=== PATIENT | male | born 1970 | race African-American/Black ===

== ENCOUNTER 2018-10-20 15:52 | Emergency (ER) | payer OTHER ==
[~2018-10-20] VITALS: Ht 182.9 cm; Wt 77.1 kg
[2018-10-20 15:56] VITALS: BP 130/58
[2018-10-20] MEDS ORDERED: ANTI-ITCH28 G1 TP (16:02)
--- NOTE | 2018-10-20 16:05 | NUR ---
ED Nurse Note: Pt came in due to lower back pain for weeks. Denies injury. Pt also c/o rashes on both arms and was prescribed by his PCP with cortisone cream but states it was not effective for him. AAO x4, ambulatory. Rahes on upper extremities
--- NOTE | 2018-10-20 16:50 | NUR ---
ED Nurse Note: ERPA at bedside assessing the pt.
[2018-10-20] MEDS ORDERED: Ketorolac 60mg Inj IM ONE (17:15)
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
[2018-10-20] MEDS ORDERED: IBU800 MG PO (17:25)
[2018-10-20] MEDS ORDERED: KENALOG 0.025%15 GM APPLIC (17:25)
[2018-10-20] MEDS ORDERED: ROBAXIN500 MG PO (17:25)
[2018-10-20 17:28] VITALS: BP 126/34
--- NOTE | 2018-10-20 17:29 | NUR ---
ED Nurse Note: Pt cleared by health care Provider for discharge. DC instructions/prescription was given and explained to pt and verbalized understanding of teachings. All medical deviecs such as ID band removed. Pt is AAO x4, ambulatory and left with all personal belongings.
== END 2018-10-20 17:30 | disposition home or self-care (01) ==
LOC: EMR 16:50
DX: G89.29 Other chronic pain (principal); M54.5 Low back pain; D36.7 Benign neoplasm of other specified sites; L30.9 Dermatitis, unspecified
CPT/HCPCS: 96372; 99283

== ENCOUNTER 2018-11-06 23:30 | Emergency (ER) | payer OTHER ==
[~2018-11-06] VITALS: Ht 182.9 cm; Wt 82.6 kg
[~2018-11-06 23:30] MED LIST: ANTI-ITCH28 G1 TP; IBU800 MG PO; KENALOG 0.025%15 GM APPLIC; ROBAXIN500 MG PO
--- NOTE | 2018-11-07 00:04 | NUR ---
ED Nurse Note: pt walked in c/o chronic back pain, pt reports it has been ongoing issue and was in the ED recently and was prescribed pain medication with robaxin but no improvement. pt denies following up with the pcp, reports his appointment is on . pt AA&ox4, gcs=15, vss, ambulatory w/ steady gait, will cont monitor.
[2018-11-07 00:05] VITALS: BP 106/69
--- NOTE | 2018-11-07 01:11 | Emergency Room Report ---
History of Present Illness General Chief Complaint: Back Pain-No Injury Source: Patient Present Illness HPI Patient is a 48-year-old male presents after recurrence of low back pain. Patient a prior history of chronic back pain intermittently. He reports having worsening pain over the past few days. He reports having worsening pain with flexion. He denies any prior surgeries on his back. He states that he has been urinating normally and had been not having any hematuria. He denies any numbness or weakness to his extremities. He did deny abdominal pain. He states he had prior ER visits in the past for low back pain with similar symptoms. He states this is a chronic problem for for many years.Patient denies any weight loss or fever. Allergies: Coded Allergies: No Known Allergies (Unverified , 10/20/18) Patient History Past Medical History: see triage record Reviewed Nursing Documentation: PMH: Agreed; PSxH: Agreed Nursing Documentation-PM Past Medical History: No History, Except For Review of Systems All Other Systems: negative except mentioned in HPI Physical Exam Vital Signs Date Time Temp Pulse Resp B/P (MAP) Pulse Ox O2 Delivery O2 Flow Rate FiO2 11/06/18 23:42 98.4 76 18 106/69 (81) 98 Room Air General Appearance: well appearing, no apparent distress, alert, GCS 15 Head: normocephalic, atraumatic ENT: hearing grossly normal, normal voice Neck: full range of motion, supple Respiratory: chest non-tender, lungs clear, normal breath sounds, no respiratory distress, speaking full sentences Cardiovascular #1: normal peripheral pulses, no edema Gastrointestinal: normal inspection Musculoskeletal: normal inspection, no calf tenderness Neurologic: alert, oriented x3, responsive, lap machine tender III-XII nml as tested, normal gait Psychiatric: mood/affect normal Skin: no rash Medical Decision Making Diagnostic Impression: Primary Impression: Exacerbation of chronic back pain ER Course Presented for back pain. Differential diagnosis included but was not limited to herniated disc, cauda equina syndrome, abdominal aortic aneurysm, perforated ulcer, spinal epidural abscess, spinal stenosis, lumbar fracture, metastatic lesion, pyelonephritis. Patient has a benign exam and does not appear to require any imaging or laboratory testing at this time.Patient appears to be stable for outpatient follow-up with his primary care physician. Patient was given prescription for muscle relaxants. Patient was advised to return if worse. Last Vital Signs Date Time Temp Pulse Resp B/P (MAP) Pulse Ox O2 Delivery O2 Flow Rate FiO2 11/07/18 00:05 98.4 74 18 106/69 98 Room Air Status: improved Disposition: HOME, SELF-CARE Condition: Stable Scripts Ibuprofen* (MOTRIN*) 600 Mg Tablet 600 MG ORAL Q8H PRN for For Pain, #30 TAB 0 Refills Prov: Maulik Reeder MD 11/07/18 Cyclobenzaprine Hcl* (FLEXERIL*) 10 Mg Tablet 10 MG ORAL TID PRN for Muscle Spasm, #20 TAB Prov: Maulik Reeder MD 11/07/18 Acetaminophen* (ACETAMINOPHEN EXTRA STRENGTH*) 500 Mg Tablet 500 MG ORAL Q8H PRN for Fever/Headache/Mild Pain, #30 TAB Prov: Maulik Reeder MD 11/07/18 Maulik Reeder MD Nov 07, 2018 01:11
[2018-11-07] MEDS ORDERED: Ketorolac 60mg Inj IM ONE (01:15)
[2018-11-07] MEDS ORDERED: Dexamethasone 4mg/ml vial IM ONE (01:15)
[2018-11-07] MEDS ORDERED: IBUPROFEN600 MG ORAL (01:22)
[2018-11-07] MEDS ORDERED: CYCLOBENZAPRINE10 MG ORAL (01:22)
[2018-11-07] MEDS ORDERED: ACETAMINOPHEN500 M3 ORAL (01:22)
[2018-11-07 01:45] VITALS: BP 112/74
--- NOTE | 2018-11-07 01:45 | NUR ---
ER Nurse Note: Pt seen, treated, medically cleared for discharge by ERMD. Discharge instuctions and prescriptions given with repeat verbalization by pt. Emphasized to follow up with primay care provider; take whole course of medication. Explained each medication. All orders completed per ERMD orders. Pt a&ox4, VSS, no signs of distress. ID band removed. All questions answered per pt's questions. Pt left with all belongings, left with own transportation.
== END 2018-11-07 01:45 | disposition home or self-care (01) ==
LOC: EMR 11-07 00:45
DX: M54.5 Low back pain (principal); G89.29 Other chronic pain
CPT/HCPCS: 96372; 99283; J1100

== ENCOUNTER 2019-01-19 11:55 | Emergency (ER) | payer OTHER ==
[~2019-01-19] VITALS: Ht 182.9 cm; Wt 86.2 kg
[~2019-01-19 11:55] MED LIST changes: +ACETAMINOPHEN500 M3 ORAL; +CYCLOBENZAPRINE10 MG ORAL; +IBUPROFEN600 MG ORAL
[2019-01-19 12:06] VITALS: BP 101/68
--- NOTE | 2019-01-19 12:08 | NUR ---
ED Nurse Note: Patient walked in to ER from home due to chronic lower back pain 9 for years. Patient alert and oriented x4 and ambulatory. Calm and cooperative. Skin clean and intact. No cardiac or acute distress noted at this time.
--- NOTE | 2019-01-19 12:29 | Emergency Room Report ---
History of Present Illness General Chief Complaint: Lower Back Pain or Injury Source: Patient Present Illness HPI 48-year-old male presents to the emergency department complaining of 10 out of 10 severity acute onset low back pain that he describes as exacerbation of his chronic back pain progressive x1 week. Patient states he has been dealing with this pain for over 30 years. Patient denies any trauma or fall he denies saddle anesthesia, urinary incontinence or retention. Patient denies midline back pain he denies history of neoplastic disease, night sweats or recent spinal procedures. No other aggravating or relieving factors at this time. He is ambulatory without assistance. He reports walking and sitting in certain positions exacerbate his pain. He is requesting refill of his steroid and antifungal cream for his rash on hands. Allergies: Coded Allergies: No Known Allergies (Unverified , 10/20/18) Patient History Past Medical History: see triage record Past Surgical History: none Pertinent Family History: none Reviewed Nursing Documentation: PMH: Agreed; PSxH: Agreed Nursing Documentation-PMH Past Medical History: No Stated History Review of Systems All Other Systems: negative except mentioned in HPI Physical Exam Vital Signs Date Time Temp Pulse Resp B/P (MAP) Pulse Ox O2 Delivery O2 Flow Rate FiO2 01/19/19 12:00 98.4 89 16 101/68 (79) 100 Room Air Sp02 EP Interpretation: reviewed, normal General Appearance: no apparent distress, alert, GCS 15, non-toxic Head: normocephalic, atraumatic Eyes: bilateral eye normal inspection, bilateral eye PERRL ENT: hearing grossly normal, normal voice Neck: full range of motion Respiratory: lungs clear, normal breath sounds, speaking full sentences Cardiovascular #1: regular rate, rhythm Gastrointestinal: non tender, soft Genitourinary: normal inspection, no CVA tenderness Musculoskeletal: back normal, gait/station normal, normal range of motion, tender - bilateral lumbar Paraspinal and upper gluteal TTP, FROM with exacerbation of pain temporarily in certain flexed positions, no LE weakness, pt. is NVI, no erythema, midline bony ttp, step-offs or obvious deformity. Neurologic: alert, oriented x3, responsive, motor strength/tone normal, sensory intact, normal gait, speech normal, grossly normal Psychiatric: judgement/insight normal Skin: normal color, rash - dry plaques on the dorsum of hands bilaterally, no erythema, no bleeding, blisters or vesicles., normal inspection Lymphatic: no adenopathy Medical Decision Making PA Attestation Dr. Lopez is my supervising Physician whom patient management has been discussed with. Diagnostic Impression: Primary Impression: Low back pain Qualified Codes: M54.5 - Low back pain Additional Impression: Rash and nonspecific skin eruption ER Course 48-year-old male presents to the emergency department complaining of 10 out of 10 severity acute onset low back pain that he describes as exacerbation of his chronic back pain progressive x1 week. Patient states he has been dealing with this pain for over 30 years. Patient denies any trauma or fall he denies saddle anesthesia, urinary incontinence or retention. Patient denies midline back pain he denies history of neoplastic disease, night sweats or recent spinal procedures. No other aggravating or relieving factors at this time. He is ambulatory without assistance. He reports walking and sitting in certain positions exacerbate his pain. He is requesting refill of his steroid and antifungal cream for his rash on hands. Ddx considered: epidural abscess, fracture, sprain/strain, meningitis, spinal chord injury, sciatica, cauda equina, Pyelonephritis, renal calculi just to name a few. Vital signs reviewed and are WNL during ED visit. Pt. is afebrile with no signs of infection No new symptoms, and denies recent trauma. No saddle anesthesia noted, Pt. denies incontinence Neurovascular is intact ROM is limited due to pain, Pt. describes pain today as moderate and radiates across the lower back. ORDERS: none warranted at this time. INTERVENTIONS: - 30mg IM Toradol -Soma PO - Lidoderm TP D/W Pt. that for further pain management is it recommended to consult PCP or a Chronic Pain management doctor. A provider who can safely prescribe controlled substances with close follow up. DISCHARGE: At this time pt. is stable for d/c to home. Will provide printed patient care instructions, and any necessary prescriptions. Care plan and follow up instructions have been discussed with the patient prior to discharge. Last Vital Signs Date Time Temp Pulse Resp B/P (MAP) Pulse Ox O2 Delivery O2 Flow Rate FiO2 01/19/19 12:06 98.4 16 101/68 100 Room Air 01/19/19 12:00 89 Disposition: HOME, SELF-CARE Condition: Stable Scripts Ketoconazole (Ketoconazole) 15 Gm Cream..g. 1 APPLIC TOPIC BID, #15 APPLIC Prov: Dorothy Hughes 01/19/19 Triamcinolone Acetonide (Triamcinolone Acetonide 0.5% Cream*) 15 Gm Cream..g. 1 APPLIC TP TID, #15 GM Prov: Dorothy Hughes 01/19/19 Naproxen* (NAPROXEN*) 500 Mg Tablet 500 MG ORAL TWICE A WEEK for 14 Days, #28 TAB 0 Refills Prov: Dorothy Hughes 01/19/19 Lidocaine Patch* (Lidoderm Patch*) 1 Each Adh..patch 1 PATCH TOPIC DAILY, #30 PATCH 0 Refills Patch(es) may remain in place for up to 12 hours in any 24-hour period. Prov: Dorothy Hughes 01/19/19 Methocarbamol* (ROBAXIN-750*) 750 Mg Tablet 750 MG PO QID for 7 Days, #28 TAB 0 Refills Prov: Dorothy Hughes 01/19/19 Patient Instructions: Back Pain, Adult Additional Instructions: Take medications as directed. Follow up with a Primary Care Provider in 3-5 days, even if your symptoms have resolved. --Please review list of primary care clinics, if you do not already have a primary care provider Return sooner to ED if new symptoms occur, or current symptoms become worse. Do not drink alcohol, drive, or operate heavy machinery while taking Robaxin ( Muscle Relaxers) as this may cause drowsiness. - Please note that this Emergency Department Report was dictated using [employer] packer technology software, occasionally this can lead to erroneous entry secondary to interpretation by the dictation equipment. Dorothy Hughes Jan 19, 2019 12:29
--- NOTE | 2019-01-19 12:30 | NUR ---
ED Nurse Note: ERPA at bedside.
[2019-01-19] MEDS ORDERED: NAPROXEN500 M2 ORAL (12:45)
[2019-01-19] MEDS ORDERED: LIDODERM700 M1 TOPIC (12:45)
[2019-01-19] MEDS ORDERED: ROBAXIN-750750 MG PO (12:45)
[2019-01-19] MEDS ORDERED: Ketorolac 30mg Inj IM ONE (12:45)
[2019-01-19] MEDS ORDERED: TRIAMCINOLONE A15 G1 TP (12:47)
[2019-01-19] MEDS ORDERED: NIZORAL 2% C1 APPLIC TOPIC (12:47)
[2019-01-19 13:05] VITALS: BP 108/71
== END 2019-01-19 13:07 | disposition home or self-care (01) ==
LOC: EMR 12:43
DX: M54.5 Low back pain (principal); R21 Rash and other nonspecific skin eruption
CPT/HCPCS: 96372; J1885; Z7502; 99283

== ENCOUNTER 2019-02-01 10:22 | Emergency (ER) | payer OTHER ==
[~2019-02-01] VITALS: Ht 182.9 cm; Wt 84.4 kg
[~2019-02-01 10:22] MED LIST changes: +LIDODERM700 M1 TOPIC; +NAPROXEN500 M2 ORAL; +NIZORAL 2% C1 APPLIC TOPIC; +ROBAXIN-750750 MG PO; +TRIAMCINOLONE A15 G1 TP
[2019-02-01 10:30] VITALS: BP 117/76
--- NOTE | 2019-02-01 10:30 | NUR ---
ED Nurse Note: Patient walked into ED c/o abscess located on his pubic area, states that he first noticed it 2 days ago, patient presents with a abscess that is about 3 quaraters of a centimer, rates his pain a 10/10 pain. abscess is in singular area. patient is alert and oriented x4, patient placed in a room is undressed. will wait for further orderrs
[2019-02-01] MEDS ORDERED: Lidocaine 1% 10mg/ml/Epi 0.005mg/ml 30ml vial INJ ONE (10:45)
--- NOTE | 2019-02-01 10:50 | NUR ---
ED Nurse Note: Consent signed by patient. All necessary quipment at bedside. patient resting in room. will continue to monitor
--- NOTE | 2019-02-01 11:12 | Emergency Room Report ---
History of Present Illness General Chief Complaint: Skin Rash/Abscess Source: Patient Present Illness HPI 48-year-old male presents with suprapubic pain, he noticed an abscess over the past 3 days, no aggravating leaving factors he endorses a sharp pain severity is moderate, no fevers no chills, patient presents for evaluation Allergies: Coded Allergies: No Known Allergies (Unverified , 10/20/18) Patient History Past Medical History: see triage record Reviewed Nursing Documentation: PMH: Agreed; PSxH: Agreed Nursing Documentation-PMH Past Medical History: No History, Except For Review of Systems All Other Systems: negative except mentioned in HPI Physical Exam Vital Signs Date Time Temp Pulse Resp B/P (MAP) Pulse Ox O2 Delivery O2 Flow Rate FiO2 02/01/19 10:24 98.2 78 16 117/76 (90) 98 Room Air General Appearance: well appearing, no apparent distress Head: normocephalic, atraumatic ENT: hearing grossly normal, normal voice Neck: full range of motion, supple Respiratory: no respiratory distress, speaking full sentences Genitourinary: other - Telephone Repairer Trever RN, 0.75 cm suprapubic abscess, no surrounding cellulitis Neurologic: alert, normal gait Psychiatric: mood/affect normal Skin: no rash Procedures Incision and Drainage Incision and Drainage : Consent: Verbal Site: Suprapubic Blade Size: 11 I & D Procedure: betadine prep, sterile drapes applied, sterile dressing applied, gauze wick placed Wound Location: other - Suprapubic Wound's Depth, Shape: superficial Wound Explored: clean Irrigated w/ Saline (ccs): 5 Anesthesia: Lidocaine w/ Epi Volume Anesthetic (ccs): 3 Patient Tolerated: Well Complications: None Medical Decision Making Diagnostic Impression: Primary Impression: Suprapubic abscess ER Course 48-year-old male presents with superficial suprapubic abscess most likely ingrown hair incision and drainage done patient tolerated procedure well, Disposition home with return precautions Last Vital Signs Date Time Temp Pulse Resp B/P (MAP) Pulse Ox O2 Delivery O2 Flow Rate FiO2 02/01/19 10:30 98.2 76 16 117/76 98 Room Air Disposition: HOME, SELF-CARE Condition: Stable Scripts Cephalexin* (KEFLEX*) 500 Mg Capsule 500 MG ORAL EVERY 6 HOURS, #20 CAP Prov: Cody Merino MD 02/01/19 Referrals: NON PHYSICIAN (PCP) [facility] Freedman. [facility] Patient Instructions: Abscess Additional Instructions: The patient was provided with discharge instructions, notified to follow-up with a primary care doctor and or specialist in the next 24-48 hours, and to return to the ED if they have worsening of their symptoms. Please note that this report is being documented using [employer] technology. This can lead to erroneous entry secondary to incorrect interpretation by the dictating instrument. Cody Merino MD Feb 01, 2019 11:12
[2019-02-01] MEDS ORDERED: CEPHALEXIN500 MG ORAL (11:14)
--- NOTE | 2019-02-01 11:16 | NUR ---
ER DISCHARGE NOTE: Patient is cleared to be discharged per ERMD, pt is aox4, on room air, with stable vital signs. pt was given dc and prescription instructions, pt was able to verbalize understanding, pt id band removed without complications. pt is able to ambulate with steady gait. pt took all belongings.
[2019-02-01 11:17] VITALS: BP 129/73
== END 2019-02-01 11:18 | disposition home or self-care (01) ==
LOC: EMR 11:08
DX: K65.1 Peritoneal abscess (principal)
CPT/HCPCS: 10060; Z7502; 99283

== ENCOUNTER 2019-02-17 16:54 | Emergency (ER) | payer OTHER ==
[~2019-02-17] VITALS: Ht 182.9 cm; Wt 85.3 kg
[~2019-02-17 16:54] MED LIST changes: +CEPHALEXIN500 MG ORAL
[2019-02-17 17:34] VITALS: BP 117/72
--- NOTE | 2019-02-17 18:30 | Emergency Room Report ---
History of Present Illness General Chief Complaint: Skin Rash/Abscess Source: Patient Present Illness HPI 48 year old male presents with a "boil" to the right side of his face onset one week ago. He reports he had the same thing on the left side a few weeks ago and took antibiotics but there was no change. He denies any pain, itching, swelling , fever, sore throat, any other symptoms. Allergies: Coded Allergies: No Known Allergies (Unverified , 10/20/18) Patient History Past Medical History: see triage record Reviewed Nursing Documentation: PMH: Agreed; PSxH: Agreed Nursing Documentation-PMH Past Medical History: No Stated History Review of Systems All Other Systems: negative except mentioned in HPI Physical Exam Vital Signs Date Time Temp Pulse Resp B/P (MAP) Pulse Ox O2 Delivery O2 Flow Rate FiO2 02/17/19 17:09 98.2 86 19 117/72 (87) 96 Room Air Sp02 EP Interpretation: reviewed, normal General Appearance: no apparent distress, alert, GCS 15, non-toxic Head: normocephalic, atraumatic ENT: hearing grossly normal, normal pharynx, no angioedema, normal voice Neck: full range of motion, supple/symm/no masses Respiratory: lungs clear, normal breath sounds, speaking full sentences Cardiovascular #1: regular rate, rhythm, no edema Musculoskeletal: gait/station normal Neurologic: alert, oriented x3, responsive, speech normal Psychiatric: judgement/insight normal, mood/affect normal Skin: no rash, warm/dry, other - small <1cm lesions to bilateral jaws, skin colored, no erythema warmth or swelling, non fluctuant, no drainage, mobile Lymphatic: normal inspection, no adenopathy Medical Decision Making PA Attestation Dr. De La Cruz is my supervising physician whom patient management and care has been discussed with. Diagnostic Impression: Primary Impression: Rash and other nonspecific skin eruption ER Course Pt. presents to the ED c/o skin lesion to bilateral jaws Ddx considered but are not limited to abscess, cellulitis, lipoma, cyst, lymphadenopathy. Vital signs: are WNL, pt. is afebrile H&PE are most consistent with lipoma, possible infectious process but no fluctuant abscess, no cellulitis ORDERS: none required at this time, the diagnosis is clinical ED INTERVENTIONS: None required at this time. DISCHARGE: At this time pt. is stable for d/c to home. Appears to be a lipoma or cyst and patient needs to follow up with operations support professionals for further evaluation and treatment. Will provide printed patient care instructions, and prescription for Clindamycin in case of infectious process. Care plan and follow up instructions have been discussed with the patient prior to discharge. Last Vital Signs Date Time Temp Pulse Resp B/P (MAP) Pulse Ox O2 Delivery O2 Flow Rate FiO2 02/17/19 17:34 98.2 71 19 117/72 96 Room Air Disposition: HOME, SELF-CARE Condition: Stable Scripts Clindamycin Hcl (CLINDAMYCIN HCL) 300 Mg Capsule 300 MG ORAL FOUR TIMES A DAY for 10 Days, #40 CAP Prov: Ysabel Masterson 02/17/19 Ysabel Masterson Feb 17, 2019 18:30
[2019-02-17] MEDS ORDERED: CLINDAMYCIN HC300 MG ORAL (18:34)
[2019-02-17 18:38] VITALS: BP 131/86
== END 2019-02-17 18:40 | disposition home or self-care (01) ==
LOC: EMR 17:58
DX: R21 Rash and other nonspecific skin eruption (principal)
CPT/HCPCS: 99282

== ENCOUNTER 2020-02-17 11:55 | Emergency (ER) | payer OTHER ==
[~2020-02-17] VITALS: Ht 185.4 cm; Wt 78.0 kg
[~2020-02-17 11:55] MED LIST changes: +AUGMENTIN 875-1 EAC1 ORAL; +CLINDAMYCIN HC300 MG ORAL
[2020-02-17 12:06] VITALS: BP 114/71
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
[2020-02-17] MEDS ORDERED: Ketorolac 30mg Inj IM ONE (12:15)
[2020-02-17] MEDS ORDERED: Methocarbamol 750mg tab ORAL ONE (12:15)
--- NOTE | 2020-02-17 12:26 | NUR ---
ED Nurse Note: Pt was taken to CT via wc, accompanied by a tech.
--- NOTE | 2020-02-17 12:41 | NUR ---
ED Nurse Note: Pt returned from CT, not in any distress.
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
--- NOTE | 2020-02-17 13:13 | Diagnostic Imaging Report ---
Indication: Trauma, pain Technique: Spiral acquisitions obtained through the cervical spine. No IV contrast utilized. Multiplanar reconstructions were generated. Total dose length product 943 mGycm. CTDIvol(s) 20, 12 mGy. Dose reduction achieved using automated exposure control. Comparison: none Findings: There is slight reversal of the normal cervical lordosis. Otherwise normal bony alignment. No prevertebral soft tissue swelling. The vertebral body heights are preserved. No acute fracture. No dislocation. At C2-3, the disc space is preserved. There is mild neural foraminal narrowing on the left due to left facet arthrosis. No significant disc bulge or protrusion. No spinal stenosis At C3-4, there is mild degenerative disc narrowing. There is moderate right and moderate to severe left neural foraminal stenosis, predominantly due to uncinate hypertrophy. No disc bulge or protrusion or spinal stenosis. At C4-5, posterior osteophytes and short pedicles result in mild narrowing of the spinal canal. There is severe bilateral neural foraminal stenosis, predominantly due to uncinate hypertrophy. There is moderate degenerative disc narrowing. At C5-6, no significant disc bulge or protrusion or spinal stenosis. There is moderate to severe right and [id number] left neural foraminal stenosis. There is mild degenerative disc narrowing. At C6-7, broad-based circumferential annular bulge results in possible compromise of the bilateral lateral recesses but no significant spinal stenosis. There is severe right and moderate left neural foraminal stenosis, due to facet and uncinate hypertrophy. At C7-T1, there is minimal degenerative disc narrowing. No significant disc bulge or protrusion, or spinal stenosis. There is minimal right and mild left neural foraminal narrowing due to facet arthrosis. Included lung apices demonstrate intraseptal emphysema and small bullae. There is some edema of the nuchal region subcutaneous fat. The visualized upper aerodigestive tract is unremarkable. Impression: No acute bony trauma Degenerative changes, as detailed on a level by level basis above The CT scanner at [facility] is accredited by the [employer] and the scans are performed using protocols designed to limit radiation exposure to as low as reasonably achievable to attain images of sufficient resolution adequate for diagnostic evaluation.
--- NOTE | 2020-02-17 13:20 | Diagnostic Imaging Report ---
Indications: Trauma, pain Technique: Spiral acquisitions obtained through the lumbar spine. Multiplanar reconstructions were generated. No IV contrast utilized. Total dose length product 943 mGycm. CTDIvol(s) 20 mGy. Dose reduction achieved using automated exposure control Comparison: none Findings: Bony alignment is normal. Vertebral body heights are preserved. No acute fracture. No dislocation. At L3-4, circumferential annular bulge results in borderline narrowing of the spinal canal. The neural foramina are preserved. At L4-5, there is circumferential annular bulge which does not significantly compromise the spinal canal. The neural foramina are preserved. At L5-S1, there is moderate degenerative disc narrowing with considerable subjacent endplate irregularity and sclerosis as well as subchondral cyst formation on both sides of the disc. There is considerable vacuum formation as well. No significant disc bulge or protrusion or spinal stenosis. The included extra spinal soft tissues are unremarkable. Impression: No acute bony trauma The CT scanner at [facility] is accredited by the [employer] and the scans are performed using protocols designed to limit radiation exposure to as low as reasonably achievable to attain images of sufficient resolution adequate for diagnostic evaluation.
[2020-02-17] MEDS ORDERED: AUGMENTIN 875-1 EAC1 ORAL (13:22)
[2020-02-17] MEDS ORDERED: IBUPROFEN600 M1 ORAL (13:22)
[2020-02-17] MEDS ORDERED: LIDODERM700 M1 TOPIC (13:22)
[2020-02-17] MEDS ORDERED: ROBAXIN-500MG ORAL (13:22)
[2020-02-17 13:27] VITALS: BP 114/71
--- NOTE | 2020-02-17 13:27 | NUR ---
ED Nurse Note: Pt cleared by ERPA for discharge. DC instructions/prescription was given and explained to pt and verbalized understanding of teachings. All medical deviecs such as ID band removed. Pt is AAO x4, ambulatory and left with all personal belongings.
== END 2020-02-17 13:27 | disposition home or self-care (01) ==
LOC: EMR 12:46
DX: S16.1XXA Strain of muscle, fascia and tendon at neck level, initial encounter (principal); S39.012A Strain of muscle, fascia and tendon of lower back, initial encounter; R22.0 Localized swelling, mass and lump, head; V43.52XA Car driver injured in collision with other type car in traffic accident, initial encounter; Y92.411 Interstate highway as the place of occurrence of the external cause
CPT/HCPCS: 72125; 72131; 96372; J1885; Z7502; 99284

== ENCOUNTER 2020-05-28 13:50 | Emergency (ER) | payer OTHER ==
[~2020-05-28] VITALS: Ht 185.4 cm; Wt 77.1 kg
[~2020-05-28 13:50] MED LIST changes: +IBUPROFEN600 M1 ORAL; +ROBAXIN-500MG ORAL
[2020-05-28 14:00] VITALS: BP 120/80
--- NOTE | 2020-05-28 14:00 | NUR ---
came to er complaints of back pain denies any injury waiting for md perez
[2020-05-28] MEDS ORDERED: ROBAXIN-750750 MG PO (14:09)
[2020-05-28] MEDS ORDERED: HYDROCODON-ACE1 EA15 ORAL (14:09)
[2020-05-28] MEDS ORDERED: LIDODERM700 M1 TOPIC (14:09)
--- NOTE | 2020-05-28 14:12 | Emergency Room Report ---
History of Present Illness General Chief Complaint: Back Pain-No Injury Source: Patient Present Illness HPI 50-year-old male with a history of chronic back pain here with back pain. Patient says that he has been suffering with back pain for many years and has had worsening of this pain over the past week. He has taken Percocets and multiple other prescription pain medications with only intermittent relief. Denies any injury. No focal numbness or weakness. No IV drug use. No midline back pain. No fevers or chills. No urinary or fecal retention or incontinence. Allergies: Coded Allergies: No Known Allergies (Unverified , 03/02/19) COVID-19 Screening Contact w/high risk pt: No Experienced COVID-19 symptoms?: No COVID-19 Testing performed CARPET CUTTER: No Nursing Documentation-[facility] Past Medical History: No Stated History Review of Systems All Other Systems: negative except mentioned in HPI Physical Exam Vital Signs Date Time Temp Pulse Resp B/P (MAP) Pulse Ox O2 Delivery O2 Flow Rate FiO2 05/28/20 13:54 98.1 78 16 120/80 (93) 98 Room Air Sp02 EP Interpretation: reviewed, normal General Appearance: no apparent distress, alert, non-toxic Head: normocephalic, atraumatic Eyes: bilateral eye normal inspection, bilateral eye PERRL ENT: hearing grossly normal, normal pharynx, no angioedema, normal voice Neck: full range of motion, supple/symm/no masses Respiratory: chest non-tender, lungs clear, normal breath sounds, speaking full sentences Cardiovascular #1: regular rate, rhythm, no edema Cardiovascular #2: 2+ carotid (R), 2+ carotid (L), 2+ radial (R), 2+ radial (L), 2+ dorsalis pedis (R), 2+ dorsalis pedis (L) Gastrointestinal: normal bowel sounds, non tender, soft, non-distended, no guarding, no rebound Rectal: deferred Genitourinary: normal inspection, no CVA tenderness Musculoskeletal: back normal, normal range of motion, gait/station normal, other - No midline spinal tenderness. Bilateral lumbar paraspinal tenderness on palpation Neurologic: alert, motor strength/tone normal, oriented x3, sensory intact, responsive, speech normal Psychiatric: judgement/insight normal, memory normal, mood/affect normal, no suicidal/homicidal ideation Lymphatic: no adenopathy Medical Decision Making Diagnostic Impression: Primary Impression: Exacerbation of chronic back pain ER Course ddx: Musculoskeletal, compression fx, herniated sic, sciatica, spinal stenosis, epidural abscess, osteomyelitis, cauda equina, mass-tumor 50-year-old male here with back pain. Patient had no red flag warning signs. He was given Toradol, Robaxin, Lidoderm patch with good resolution of his pain. Was told to follow-up with his primary care physician. Discharged in stable condition. Last Vital Signs Date Time Temp Pulse Resp B/P (MAP) Pulse Ox O2 Delivery O2 Flow Rate FiO2 05/28/20 14:00 98.1 16 120/80 98 Room Air 05/28/20 13:54 78 Disposition: HOME, SELF-CARE Condition: Stable Scripts Lidocaine Patch* (Lidoderm Patch*) 1 Each Adh..patch 1 PATCH TOPIC DAILY, #7 PATCH 0 Refills Patch(es) may remain in place for up to 12 hours in any 24-hour period. Prov: Suman Mahoney M.D. 05/28/20 Methocarbamol* (ROBAXIN-750*) 750 Mg Tablet 750 MG PO TID, #21 TAB 0 Refills Prov: Suman Mahoney M.D. 05/28/20 Hydrocodone/Acetaminophen 5-325* (HYDROCODONE/ACETAMINOPHEN 5-325*) 1 Each Tablet 1 TAB ORAL Q4H PRN for For Pain, #10 TAB 0 Refills Prov: Suman Mahoney M.D. 05/28/20 Referrals: [facility] Wilda Freedman. [facility] Patient Instructions: Back Pain, Adult Suman Mahoney M.D. May 28, 2020 14:12
[2020-05-28] MEDS ORDERED: Ketorolac 30mg Inj IM ONE (14:15)
[2020-05-28] MEDS ORDERED: Acetaminophen 500mg (ES) tab ORAL ONE (14:15)
[2020-05-28] MEDS ORDERED: Methocarbamol 750mg tab ORAL ONE (14:15)
--- NOTE | 2020-05-28 14:41 | NUR ---
discharged home with instruction and rx follow up with pmd
[2020-05-28 14:42] VITALS: BP 120/80
== END 2020-05-28 14:43 | disposition home or self-care (01) ==
LOC: EMR 14:10
DX: G89.29 Other chronic pain (principal); M54.5 Low back pain
CPT/HCPCS: 96372; J1885; Z7502; 99283